=== PATIENT | male | born 1985 | race Two or more races ===

== ENCOUNTER 2017-02-19 09:01 | Inpatient (IN) | payer OTHER ==
[~2017-02-19] VITALS: Ht 182.9 cm; Wt 75.0 kg
[2017-02-19] MEDS ORDERED: SODIUM CHLORIDE 0.9% 1,000ML IVBOLUS ONE (09:30)
[2017-02-19] MEDS ORDERED: DIPHENHYDRAMINE 50 MG/ML, 1ML IVPush ONE (09:30)
[2017-02-19] MEDS ORDERED: SODIUM CHLORIDE FLUSH 10ML SYR IVF ONE (09:30)
[2017-02-19] MEDS ORDERED: PROCHLORPERAZINE 5 MG/ML, 2ML IVPush ONE (09:30)
[2017-02-19] MEDS ORDERED: DIPHENHYDRAMINE 50 MG/ML, 1ML ONE (09:42)
[2017-02-19] MEDS ORDERED: PROCHLORPERAZINE 5 MG/ML, 2ML ONE (09:42)
[2017-02-19 09:52] LABS: ASPARTATE AMINO TRANSFERASE 10 U/L (15-37); BLOOD UREA NITROGEN 7 mg/dL (7-18)
[2017-02-19 10:02] LABS: HEMATOCRIT 41.2 % (39.2-51.8); HEMOGLOBIN 13.8 g/dL (13.7-18.0); WHITE BLOOD COUNT 7.1 x10^3/uL (3.4-10)
[2017-02-19] MEDS ORDERED: HYDROmorphone 1 MG/ML, 1ML IVPush PRN (10:30)
[2017-02-19] MEDS ORDERED: ONDANSETRON 2MG/ML, 2ML IVPush ONE (10:30)
[2017-02-19] MEDS ORDERED: HYDROmorphone 1 MG/ML, 1ML ONE ×2 (10:46→13:18)
[2017-02-19] MEDS ORDERED: ONDANSETRON 2MG/ML, 2ML ONE (10:47)
[2017-02-19 11:59] LABS: GLUCOSE, CSF 50 mg/dL (40-80)
[2017-02-19] MEDS ORDERED: CEFTRIAXONE PMX 1GM/50ML 50 ML IV ONE (13:00)
[2017-02-19] MEDS ORDERED: CEFTRIAXONE PMX 1GM/50ML 50 ML ONE (13:18)
[2017-02-19] MEDS ORDERED: SODIUM CHLORIDE 0.9% 1,000 ML IV ONE (13:48)
[2017-02-19] MEDS ORDERED: SODIUM CHLORIDE FLUSH 10ML SYR IVF PRN (14:00)
[2017-02-19] MEDS ORDERED: BISACODYL 10 MG SUPP PR PRN (15:00)
[2017-02-19] MEDS ORDERED: morphine SULFATE 10 MG/ML, 1ML IVPush PRN (15:00)
[2017-02-19] MEDS ORDERED: DOCUSATE 100 MG CAPSULE PO PRN (15:00)
[2017-02-19] MEDS ORDERED: POLYETHYLENE GLYCOL 17 GM PACKET PO PRN (15:00)
[2017-02-19] MEDS ORDERED: HYDROcodone/APAP 5/325 TABLET PO PRN (15:00)
[2017-02-19] MEDS ORDERED: LABETALOL 5MG/ML, 20ML IVPush PRN (15:00)
[2017-02-19] MEDS ORDERED: ONDANSETRON 2MG/ML, 2ML IVPush PRN (15:00)
[2017-02-19] MEDS ORDERED: POTASSIUM CHLORIDE 20 MEQ TAB.ER.PRT PO ONE (15:00)
[2017-02-19 17:00] VITALS: BP 116/77
[2017-02-19] MEDS: ENOXAPARIN 40 MG/0.4 ML SQ SCH (18:00)
[2017-02-19] MEDS: ACETAMINOPHEN 325 MG TABLET PO PRN (18:01)
[2017-02-19 18:22] VITALS: BP 116/77
[2017-02-19] MEDS: NS + 20MEQ KCL 1,000 ML IV SCH (18:50)
[2017-02-19 20:52] VITALS: BP 109/70
[2017-02-19] MEDS: SODIUM CHLORIDE FLUSH 10ML SYR IVF SCH (21:04)
[2017-02-19] MEDS: KETOROLAC 30 MG/1 ML IVPush PRN (21:21)
[2017-02-20] MEDS: CEFTRIAXONE PMX 2GM/50ML 50 ML IV SCH ×3 (01:58→14:28)
[2017-02-20 02:01] VITALS: BP 94/62
[2017-02-20] MEDS: NS + 20MEQ KCL 1,000 ML IV SCH ×2 (05:05→14:28)
[2017-02-20 05:40] LABS: BLOOD UREA NITROGEN 8 mg/dL (7-18)
[2017-02-20 05:41] LABS: HEMATOCRIT 36.9 % (39.2-51.8); HEMOGLOBIN 12.3 g/dL (13.7-18.0); WHITE BLOOD COUNT 4.4 x10^3/uL (3.4-10)
[2017-02-20 07:40] VITALS: BP 98/62
[2017-02-20] MEDS: KETOROLAC 30 MG/1 ML IVPush PRN ×2 (08:13→21:17)
[2017-02-20] MEDS: SODIUM CHLORIDE FLUSH 10ML SYR IVF SCH ×2 (08:13→21:17)
[2017-02-20] MEDS: ACETAMINOPHEN 325 MG TABLET PO PRN ×2 (12:23→16:36)
[2017-02-20 12:40] VITALS: BP 103/71
[2017-02-20] MEDS: ENOXAPARIN 40 MG/0.4 ML SQ SCH (16:36)
[2017-02-20 19:34] VITALS: BP 99/64
[2017-02-21] MEDS: NS + 20MEQ KCL 1,000 ML IV SCH ×2 (00:51→13:41)
[2017-02-21] MEDS ORDERED: TEMAZEPAM 15 MG CAPSULE PO ONE (01:00)
[2017-02-21] MEDS: CEFTRIAXONE PMX 2GM/50ML 50 ML IV SCH ×2 (02:07→13:40)
[2017-02-21 03:45] VITALS: BP 106/71
[2017-02-21] MEDS: ACETAMINOPHEN 325 MG TABLET PO PRN ×3 (05:21→20:52)
[2017-02-21 05:52] LABS: HEMATOCRIT 35.6 % (39.2-51.8); HEMOGLOBIN 11.8 g/dL (13.7-18.0); WHITE BLOOD COUNT 3.6 x10^3/uL (3.4-10)
[2017-02-21 05:58] LABS: BLOOD UREA NITROGEN 7 mg/dL (7-18)
[2017-02-21 07:25] VITALS: BP 95/56
[2017-02-21] MEDS: SODIUM CHLORIDE FLUSH 10ML SYR IVF SCH (08:04)
[2017-02-21 15:18] VITALS: BP 98/63
[2017-02-21] MEDS: ENOXAPARIN 40 MG/0.4 ML SQ SCH (17:43)
[2017-02-21 20:27] VITALS: BP 110/71
[2017-02-22] MEDS: NS + 20MEQ KCL 1,000 ML IV SCH ×3 (01:26→17:39)
[2017-02-22 02:18] VITALS: BP 97/61
[2017-02-22] MEDS: CEFTRIAXONE PMX 2GM/50ML 50 ML IV SCH ×2 (02:50→14:58)
[2017-02-22] MEDS: SODIUM CHLORIDE FLUSH 10ML SYR IVF SCH ×3 (02:51→21:00)
[2017-02-22 05:38] LABS: BLOOD UREA NITROGEN 8 mg/dL (7-18)
[2017-02-22 05:42] LABS: HEMATOCRIT 37.4 % (39.2-51.8); HEMOGLOBIN 12.4 g/dL (13.7-18.0); WHITE BLOOD COUNT 2.5 x10^3/uL (3.4-10)
[2017-02-22 08:14] VITALS: BP 106/72
[2017-02-22 13:06] VITALS: BP 107/66
[2017-02-22] MEDS ORDERED: HYDROcodone/APAP 5/325 TABLET PO PRN (14:30)
[2017-02-22] MEDS ORDERED: ONDANSETRON 2MG/ML, 2ML IVPush PRN (14:30)
[2017-02-22] MEDS ORDERED: DOCUSATE 100 MG CAPSULE PO PRN (14:30)
[2017-02-22] MEDS ORDERED: LABETALOL 5MG/ML, 20ML IVPush PRN (14:30)
[2017-02-22] MEDS ORDERED: BISACODYL 10 MG SUPP PR PRN (14:30)
[2017-02-22] MEDS ORDERED: morphine SULFATE 10 MG/ML, 1ML IVPush PRN (14:30)
[2017-02-22] MEDS ORDERED: POLYETHYLENE GLYCOL 17 GM PACKET PO PRN (14:30)
[2017-02-22] MEDS: ENOXAPARIN 40 MG/0.4 ML SQ SCH (17:15)
[2017-02-22 19:32] VITALS: BP 108/74
[2017-02-23] MEDS: CEFTRIAXONE PMX 2GM/50ML 50 ML IV SCH (02:06)
[2017-02-23 02:13] VITALS: BP 94/57
[2017-02-23] MEDS: ACETAMINOPHEN 325 MG TABLET PO PRN (02:46)
[2017-02-23] MEDS: NS + 20MEQ KCL 1,000 ML IV SCH (04:46)
[2017-02-23 08:11] VITALS: BP 106/68
[2017-02-23 08:12] LABS: HEMATOCRIT 38.4 % (39.2-51.8); HEMOGLOBIN 12.6 g/dL (13.7-18.0); WHITE BLOOD COUNT 2.1 x10^3/uL (3.4-10)
[2017-02-23 08:18] LABS: BLOOD UREA NITROGEN 7 mg/dL (7-18)
[2017-02-23] MEDS: SODIUM CHLORIDE FLUSH 10ML SYR IVF SCH (08:55)
== END 2017-02-23 10:44 | disposition home or self-care (01) | DRG 76 ==
LOC: ED 11:47 → EDIP 13:48 → 3NE 16:49
PROVIDERS: ADMIT Hospitalist; ATTEND Hospitalist
PROC: 009U3ZX Drainage of Spinal Canal, Percutaneous Approach, Diagnostic (ICD-10-PCS; principal; 2017-02-19)
DX: A87.9 Viral meningitis, unspecified (principal); E87.6 Hypokalemia; D72.819 Decreased white blood cell count, unspecified; M54.9 Dorsalgia, unspecified; Z87.891 Personal history of nicotine dependence; Z87.828 Personal history of other (healed) physical injury and trauma
CPT/HCPCS: 36415; 70450; 80048; 80053; 82945; 84157; 85025; 85651; 86788; 86789; 87040; 87070; 87205; 87252; 87254; 87498; 89051; 96361; 96365; 96375; J0696; J1170; J1885; J2405; J3480; J0780; J1200; J7030